=== PATIENT | male | born 1990 | race Two or more races ===

== ENCOUNTER 2019-07-09 00:35 | Emergency (ER) | payer OTHER ==
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
[2019-07-09] MEDS ORDERED: DIPHTH,PERTUSS(ACELL),TET 0.5 ML DISP.SYRIN IM ONE (01:02)
[2019-07-09] MEDS ORDERED: ACETAMINOPHEN 325 MG TABLET (FP) PO ONE (01:04)
[2019-07-09 01:09] VITALS: BMI 23.7
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
[2019-07-09 03:19] VITALS: BP 130/69; PULSE 76; TEMP 98.2
== END 2019-07-09 03:41 | disposition home or self-care (01) ==
LOC: JER 00:35
PROC: 3E0234Z Introduction of Serum, Toxoid and Vaccine into Muscle, Percutaneous Approach (ICD-10-PCS; principal; 2019-07-09)
PROC: 0JQQ0ZZ Repair Right Foot Subcutaneous Tissue and Fascia, Open Approach (ICD-10-PCS; 2019-07-09)
DX: S91.311A Laceration without foreign body, right foot, initial encounter (principal); M25.551 Pain in right hip; V49.49XA Driver injured in collision with other motor vehicles in traffic accident, initial encounter; W22.19XA Striking against or struck by other automobile airbag, initial encounter; Y93.89 Activity, other specified; Y92.414 Local residential or business street as the place of occurrence of the external cause; Y99.8 Other external cause status
CPT/HCPCS: 71045-TC-FY; 73523-TC-FY; 73630-TC-RT-FY; 90715; 99284-25